=== PATIENT | female | born 1990 | race Two or more races ===

== ENCOUNTER 2020-04-09 00:03 | Emergency (ER) | payer SELFPAY ==
[~2020-04-09] VITALS: Ht 157.5 cm; Wt 68.0 kg
[2020-04-09] MEDS ORDERED: ONDANSETRON 4MG ODT PO ONE (00:45)
[2020-04-09] MEDS ORDERED: KETOROLAC 30MG/ML VIAL IM ONE (00:45)
[2020-04-09] MEDS ORDERED: ACETAMINOPHEN 325MG TABLET PO ONE (01:15)
[2020-04-09] MEDS ORDERED: KETOROLAC 30MG/ML VIAL IV STA (01:41)
[2020-04-09] MEDS ORDERED: DIPHENHYDRAMINE 50MG/ML VIAL IV ONE (01:45)
[2020-04-09] MEDS ORDERED: SODIUM CHLORIDE 0.9% 1,000 ML IV ONE ×2 (01:45→02:45)
[2020-04-09] MEDS ORDERED: METOCLOPRAMIDE HCL 10MG/2ML VIAL IV ONE (01:45)
[2020-04-09 02:32] LABS: HEMATOCRIT. 41.4 % (36.0-48.0); HEMOGLOBIN. 14.4 g/dL (12.0-16.0); MEAN CORPUSCULAR HEMOGLOBIN 30.5 pg (28.0-32.0); MEAN CORPUSCULAR VOLUME 87.7 fL (81.0-99.0); MEAN PLATELET VOLUME 9.3 fl (7.4-10.4); PLATELET 173 x1000/uL (130-400); RED BLOOD CELL COUNT 4.72 mill/uL (4.2-5.4)
[2020-04-09 02:39] LABS: CHLORIDE 106 mEq/L (98-107)
[2020-04-09 02:54] LABS: PLATELET ESTIMATE NORMAL
[2020-04-09 03:03] LABS: CLARITY URINE CLEAR (CLEAR); COLOR URINE DARK YELLOW (YELLOW); KETONES URINE 1+ (NEGATIVE); LEUKOCYTE ESTERASE URINE TRACE (NEGATIVE); NITRITE URINE NEGATIVE (NEGATIVE); OCCULT BLOOD URINE NEGATIVE (NEGATIVE); PH URINE 5.5 (4.5-8.0); PROTEIN URINE TRACE (NEGATIVE); SPECIFIC GRAVITY URINE 1.038 (1.005-1.030)
[2020-04-09] MEDS ORDERED: CEFTRIAXONE SODIUM 1 G/VIAL IV ONE (04:00)
[2020-04-09] MEDS ORDERED: CEFTRIAXONE 1 G PREMIX 50 ML IV ONE (04:00)
[2020-04-09 04:30] VITALS: BP 95/53
== END 2020-04-09 05:10 | disposition left against medical advice (07) ==
LOC: ER 00:03
DX: N39.0 Urinary tract infection, site not specified (principal); R51.9 Headache, unspecified; D72.829 Elevated white blood cell count, unspecified; R11.2 Nausea with vomiting, unspecified; Z20.828 Contact with and (suspected) exposure to other viral communicable diseases
CPT/HCPCS: 36415; 71045; 80053; 81003; 81025; 83605; 85025; 87040; 87086; 96361; 96365; 96375; 99284; J0696; J1200; J1885; J2765; J7030; Q0162